=== PATIENT | female | born 1995 | race Caucasian/White ===

== ENCOUNTER 2017-07-14 17:17 | Outpatient (CLI) | payer OTHER ==
[~2017-07-14 17:17] MED LIST: PRENTAB26 PO
[2017-07-14] MEDS ORDERED: LACTATED RINGER'S 1000ML 1,000 ML IV SCH (20:40)
[2017-07-14] MEDS ORDERED: LACTATED RINGER'S 1000ML 1,000 ML IV PRN (20:40)
[2017-07-14 21:13] LABS: HEMATOCRIT 32.6 % (37-47); HEMOGLOBIN 10.7 g/dL (12.0-16.0); MEAN CELL VOLUME 81.9 fL (80-100); MEAN CORPUSCULAR HEMOGLOBIN 26.9 pg (25-34); MEAN CORPUSCULAR HGB CONC 32.8 g/dl (32-36); MEAN PLATELET VOLUME 9.6 fL (7.4-10.4); PLATELET COUNT 187 K/uL (130-400); RED CELL DISTRIBUTION WIDTH CV 13.6 % (11.5-14.5); RED CELL DISTRIBUTION WIDTH SD 41.3 fL (36.4-46.3); WHITE BLOOD COUNT 9.84 K/uL (4.8-10.8)
--- NOTE | 2017-07-15 06:13 | Discharge Instructions ---
Discharge Instructions Date of Service Jul 15, 2017. Admission Reason for Admission: Labor Check Discharge Discharge Diagnosis / Problem: labor check Discharge Goals Goal(s): Continuing OB care Activity Recommendations Activity Limitations: as noted below ACTIVITY RECOMMENDATIONS: See Labor Sheet. SPECIAL CARE INSTRUCTIONS: Call Doctor if: * Regular contractions every 5 minutes or greater than contractions in one hour. * Bleeding * Water breaks or is leaking * Decreased movement * Fever >100.4 degrees F * Pain not relieved by routine measures or pain medication ordered. FOLLOW UP VISIT: Return to Labor and Delivery on for /call for appointment time . Follow-up Visit with: When: . Current Hospital Diet Patient's current hospital diet: Discharge Diet Recommended Diet: Regular Diet Pending Studies Studies pending at discharge: no Medical Emergencies . Who to Call and When: Medical Emergencies: If at any time you feel your situation is an emergency, please call 911 immediately. . Non-Emergent Contact Non-Emergency issues call your: Specialist . . "Provider Documentation" section prepared by Farshad Casillas. . VTE Core Measure Inpt VTE Proph given/why not?: Treatment not indicated
[2017-07-15] MEDS ORDERED: IV FLUIDS COMPLETED PRN (06:30)
--- NOTE | 2017-07-15 07:02 | HISTORY & PHYSICAL EXAMINATION ---
DATE OF ADMISSION: 07/14/2017 HISTORY OF PRESENT ILLNESS: The patient is a 22-year-old G3, P2, due date 07/28/2017 making that 38 weeks and 1 day today. The patient presented to labor and delivery yesterday on 07/14/2017. She had called the office with complaints of contractions. She lives 45 minutes away so reported having contractions about 8-10 minutes. She was therefore made to come to labor and delivery for monitoring. On arrival at labor and delivery, she had no shortness of breath, no chills, no fever. She had contractions of moderate intensity. The contractions were about 2-4 minutes. The patient was examined in labor and delivery and on initial cervical exam. by a nurse was 2 cm She ambulated for several hours. She continued to have these contractions 2-3 minutes. The contraction intensity continued to be moderate. She was reexamined by a different nurse several hours later who found her to be 4 cm dilated. Decision was therefore made to admit patient. The patient continued to describe contractions moderate and wanted to continue walking. She continued to be 4 cm dilated with no cervical change. Her contractions eventually spaced out. The patient was kept overnight and this morning she was examined again. Her contractions interestingly enough have spaced out to almost every 12 minutes and she can barely feel the contractions this morning. Because the patient is 38 weeks, we have decided not to augment labor. Plan is the patient will be discharged home. She is very concerned about possibly delivering at home. I therefore, I scheduled her for induction next week 07/21/2017. The patient and her family agrees with plan and she is therefore be discharged home stable. She will continue to follow up with the office appointment. She has an appointment this afternoon and we will continue with office appointments as planned and will return for labor induction next week July 21, when she will be 39 weeks. COURSE: has been unremarkable. LABS: Blood type B positive, antibody negative, rubella immune, GBS nonreactive. PAST MEDICAL HISTORY: The patient has history of syncope, SEASONAL ALLERGIES. PAST SURGICAL HISTORY: None. RN MILITARY HISTORY: The patient has had 2 spontaneous vaginal deliveries, one in 2012, the other in 2014. Both required induction because of preeclampsia. ALLERGIES: THE PATIENT IS ALLERGIC TO CEPHALEXIN AND PENICILLIN. SOCIAL HISTORY: The patient denies tobacco, drug or alcohol use. PHYSICAL EXAMINATION: GENERAL: Well-developed, well-nourished white female in no acute distress. HEART: S1, S2, regular rhythm and rate. LUNGS: Clear to auscultation bilaterally. ABDOMEN: Gravid. heart rate is category 1. PELVIC: Cervix is about 3 cm, 50% effaced, and very posterior. EXTREMITIES: No cyanosis, clubbing or edema. ASSESSMENT AND PLAN: A 22-year-old G3, P2 at 38 weeks. The patient is admitted to labor and delivery with what initially appeared as labor. She progressed, according to nurse exam, from 2-4 cm several hours later. Her contractions have spaced out, they are now every 12 minutes and the patient notes the contractions, that is mild. Because she is 38 weeks, I decided not to augment her labor at this time. We will discuss continued expected management versus going home. The patient has agreed to go home. She is given instructions about labor. She was examined by me and she is according to my exam at about 3 cm, 50% effaced, and very posterior. The patient is very concerned about possibility of going into labor at home. She lives 45 minutes away. We have therefore agreed to schedule her for induction when she is 39 weeks, which will be on Thursday07/21/2017. At this point, the patient is being discharged home in stable condition. The patient and family have agreed with plan. RUDY
== END 2017-07-15 06:20 | disposition home or self-care (01) ==
LOC: C.LD 17:17 → C.OPB 17:17
PROVIDERS: ATTEND Obstetrics & Gynecology
DX: O62.9 Abnormality of forces of labor, unspecified (principal); Z3A.38 38 weeks gestation of pregnancy

== ENCOUNTER 2017-07-21 07:47 | Inpatient (IN) | payer OTHER ==
[~2017-07-21] VITALS: Ht 154.9 cm; Wt 80.0 kg
[2017-07-21] MEDS ORDERED: LACTATED RINGER'S 1000ML 1,000 ML IV PRN (08:03)
[2017-07-21] MEDS ORDERED: LACTATED RINGER'S 1000ML 1,000 ML IV SCH (08:03)
[2017-07-21] MEDS ORDERED: LACTATED RINGER'S 1000ML 500 ML IV PRN ×2 (08:03→16:01)
[2017-07-21 08:31] VITALS: Ht 154.9 cm; Wt 80.0 kg
[2017-07-21 08:45] LABS: HEMATOCRIT 32.8 % (37-47); HEMOGLOBIN 10.9 g/dL (12.0-16.0); MEAN CELL VOLUME 81.2 fL (80-100); MEAN CORPUSCULAR HGB CONC 33.2 g/dl (32-36); MEAN PLATELET VOLUME 9.7 fL (7.4-10.4); PLATELET COUNT 180 K/uL (130-400); RED CELL DISTRIBUTION WIDTH CV 13.9 % (11.5-14.5); RED CELL DISTRIBUTION WIDTH SD 41.9 fL (36.4-46.3); WHITE BLOOD COUNT 10.12 K/uL (4.8-10.8)
[2017-07-21] MEDS: OXYTOCIN 30 UNITS/500ML NSS IV PRN ×2 (09:11→21:21)
[2017-07-21] MEDS ORDERED: BUPIVACAINE 0.25% 30 ML VIAL ONE (14:45)
[2017-07-21] MEDS ORDERED: FENTANYL CITRATE INJ 50 MCG/1 ML 2 ML VIAL ONE (14:46)
[2017-07-21] MEDS ORDERED: EpHEDrine SULFATE INJ 50 MG/ML AMP ONE (14:46)
[2017-07-21] MEDS ORDERED: FENTANYL 2MCG/ML ROPIV 1.25MG/ML 100ML BAG EPI ONE (14:47)
[2017-07-21] MEDS ORDERED: NALOXONE HCL INJ 1 MG in SODIUM CHLORIDE 0.9% 1000ML 1,000 ML IV PRN ×4 (16:01)
[2017-07-21] MEDS ORDERED: EpHEDrine SULFATE INJ 50 MG/ML AMP IV PRN (16:15)
[2017-07-21] MEDS ORDERED: ONDANSETRON INJ 2 MG/ML 2 ML VIAL IV PRN (16:15)
[2017-07-21] MEDS ORDERED: DiphenhydrAMINE HCL 50 MG/ML VIAL IV PRN (16:15)
[2017-07-21] MEDS ORDERED: NALBUPHINE HCL INJ 10 MG/ML AMP IV PRN (16:15)
[2017-07-21] MEDS ORDERED: FENTANYL 2MCG/ML ROPIV 1.25MG/ML 100ML BAG EPI PRN (16:15)
[2017-07-21] MEDS ORDERED: PROMETHAZINE HCL INJ 25 MG in SODIUM CHLORIDE 0.9% 50ML 50 ML IV PRN (16:15)
[2017-07-21] MEDS ORDERED: NALOXONE HCL INJ 0.4 MG/1 ML VIAL/CARP IV PRN (16:15)
--- NOTE | 2017-07-21 20:31 | HISTORY & PHYSICAL EXAMINATION ---
DATE OF ADMISSION: 07/21/2017 HISTORY OF PRESENT ILLNESS: The patient is a 22-year-old G3, P2, due date 07/28/2017 making her 39 weeks today. The patient is here for induction of labor. The patient lives about an hour and half from here and her last delivery was precipitous. Decision was therefore made to have the patient come in for induction of labor. On arrival to labor and delivery, she had no shortness of breath, no chills, no fever. Pelvic exam shows she was 3 cm, 50% effaced, and -2. LABS: Have been unremarkable. Blood type is B positive, antibody negative, rubella immune, GBS negative. PAST MEDICAL HISTORY: The patient had history of syncope and allergic rhinitis. PAST SURGICAL HISTORY: None. ALLERGIES: THE PATIENT IS ALLERGIC TO CEPHALEXIN AND PENICILLIN. SOCIAL HISTORY: The patient denies tobacco, drug or alcohol use. FAMILY HISTORY: Noncontributory. 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 's weight 8 pounds 13 ounces and 9 pounds 6 ounces respectively. REVIEW OF SYSTEMS: Negative except as dictated in the HPI. PHYSICAL EXAMINATION: GENERAL: Well-developed, well-nourished white female in no acute distress. HEART: S1, S2, regular rhythm and rate. LUNGS: Clear to auscultation bilaterally. ABDOMEN: Gravid. Bedside ultrasound shows cephalic presentation. PELVIC: On admission was 3 cm, 50% effaced, -2. EXTREMITIES: No cyanosis, clubbing or edema. ASSESSMENT AND PLAN: A 22-year-old G3, P2 at 39+ weeks, here for induction of labor. She lives over an hour [place] a half away and her last delivery was rather precipitous. The patient has been admitted for induction of labor.
[2017-07-21] MEDS ORDERED: METHYLERGONOVINE MALEATE 0.2 MG/ML AMP ONE (20:39)
[2017-07-21] MEDS ORDERED: SUPERCREAM 0.870 % 15GM JAR EXT PRN (21:15)
[2017-07-21] MEDS ORDERED: BENZOCAINE 20% AER SPR 82.5 GM CAN EXT PRN (21:15)
[2017-07-21] MEDS ORDERED: HYDROCORTISONE ACETATE 25 MG SUPP PR PRN (21:15)
[2017-07-21] MEDS ORDERED: ACETAMINOPHEN 325 MG TAB PO PRN (21:15)
[2017-07-21] MEDS ORDERED: OXYCODONE/ACETAMINOPHEN 5-325 TAB PO PRN (21:15)
[2017-07-21] MEDS ORDERED: MISOPROSTOL 200 MCG TAB PR SCH (21:15)
[2017-07-21] MEDS ORDERED: LANOLIN OINT EXT PRN (21:15)
[2017-07-21] MEDS ORDERED: OXYTOCIN 30 UNITS/500ML NSS IV PRN (21:15)
[2017-07-21] MEDS ORDERED: ACETAMINOPHEN/CODEINE 300/30MG TAB PO PRN ×2 (21:15)
--- NOTE | 2017-07-21 21:24 | DELIVERY SUMMARY ---
DATE OF OPERATION: 07/21/2017 DELIVERY NOTE: The patient delivered a live male in left occiput anterior presentation. There was loose nuchal cord, which was easily reduced. The infant was delivered and placed on mother's abdomen. Cord was clamped after 1 minute. Cord blood was obtained. Placenta was spontaneously delivered. Inspection of the perineum showed no laceration or tears. The perineum was completely intact. Estimated blood loss is 250 mL. All retractors were removed from the vagina. Rectal exam post repair showed good sphincter tone. The 's weight is pending. The patient's Apgars 8 and 9. Baby and mother are doing well in the recovery. I attest to the content of the Intraoperative Record and any orders documented therein. Any exception s are noted below.
--- NOTE | 2017-07-21 21:35 | Anesthesia Procedure Note ---
Anesthesia Epidural Removal Nt Date & Time Jul 21, 2017 at 21:35 Vital Signs Pain Intensity: 5.0 Notes Mental Status: alert / awake / arousable, participated in evaluation Nausea / Vomiting: adequately controlled Pain: adequately controlled Airway Patency, RR, SpO2: stable & adequate BP & HR: stable & adequate Hydration State: stable & adequate Neuraxial Anesthesia: was administered Anesthetic Complications: no major complications apparent, pt satisfied with anesthetic care Epidural: removed without complications, with tip intact
[2017-07-21 23:15] VITALS: BP 115/75; PULSE 93; TEMP 36.9; O2SAT 97
[2017-07-22] MEDS: IBUPROFEN 600 MG TAB PO PRN ×4 (03:44→20:16)
[2017-07-22 04:02] VITALS: BP 113/67; PULSE 79; TEMP 36.6; O2SAT 98
[2017-07-22 06:30] LABS: HEMATOCRIT 29.2 % (37-47); HEMOGLOBIN 9.8 g/dL (12.0-16.0)
[2017-07-22 08:00] VITALS: BP 113/74; PULSE 80; TEMP 36.6
[2017-07-22] MEDS: DOCUSATE SODIUM 100 MG CAP PO SCH ×2 (08:53→20:00)
[2017-07-22] MEDS: FERROUS SULFATE 325 MG TAB PO SCH (09:40)
[2017-07-22 11:36] VITALS: BP 126/79; PULSE 84; TEMP 36.8
--- NOTE | 2017-07-22 11:50 | OB/GYN Progress Note ---
MARKET RESEARCH EXECUTIVE Progress Note Date of Service Jul 22, 2017. Subjective conversation w/ patient, physical exam Ambulation: ambulating normally Voiding: no voiding problems Passing Gas: Yes Diet Tolerance: Regular Diet Lochia: Small Feeding Type: Bottle Feeding Objective Vital Signs Date Time Temp Pulse Resp B/P (MAP) Pulse Ox O2 Delivery O2 Flow Rate FiO2 07/22/17 11:36 36.8 84 16 126/79 (95) 07/22/17 08:39 Room Air 07/22/17 08:00 36.6 80 18 113/74 (87) Room Air 07/22/17 04:02 36.6 79 16 113/67 (82) 98 Room Air 07/21/17 23:15 97 Room Air 07/21/17 23:15 36.9 93 18 115/75 (88) 97 Room Air Physical Exam General Appearance: WELL-APPEARING, NO APPARENT DISTRESS Abdomen: non tender, soft Fundus: Firm Extremities: non-tender, normal inspection, no pedal edema, no calf tenderness Laboratory Results Last 24 Hours Test 07/22/17 06:05 Hemoglobin 9.8 g/dL Hematocrit 29.2 % Assessment and Plan Post- Day Number: 1 Continue Routine Care: tentative discharge in AM
[2017-07-22 15:23] VITALS: BP 120/74; PULSE 83; TEMP 36.8; O2SAT 96
[2017-07-22 20:00] VITALS: BP 114/73; PULSE 73; TEMP 36.5; O2SAT 97
[2017-07-22] MEDS ORDERED: BISACODYL 5 MG TABEC PO SCH (20:00)
[2017-07-23 00:30] VITALS: BP_SYST 100; BP_SYST 123; BP_DIAS 65; BP_DIAS 75; PULSE 60; PULSE 76; TEMP 36.6; TEMP 36.9
[2017-07-23 07:00] LABS: HEMATOCRIT 30.3 % (37-47); MEAN CELL VOLUME 81.2 fL (80-100); MEAN CORPUSCULAR HEMOGLOBIN 26.8 pg (25-34); PLATELET COUNT 155 K/uL (130-400); WHITE BLOOD COUNT 9.06 K/uL (4.8-10.8)
[2017-07-23] MEDS ORDERED: BISACODYL 10 MG SUPP PR PRN (07:00)
[2017-07-23 07:30] VITALS: BP 125/85; PULSE 71; TEMP 36.6; O2SAT 98
[2017-07-23] MEDS: FERROUS SULFATE 325 MG TAB PO SCH (08:06)
[2017-07-23] MEDS: DOCUSATE SODIUM 100 MG CAP PO SCH (08:06)
[2017-07-23] MEDS: IBUPROFEN 600 MG TAB PO PRN (08:06)
--- NOTE | 2017-07-23 08:46 | OB/GYN Progress Note ---
[employer]ER [employer] Progress Note Date of Service Jul 23, 2017. Subjective conversation w/ patient, physical exam Ambulation: ambulating normally Voiding: no voiding problems Passing Gas: Yes Diet Tolerance: Regular Diet Lochia: Moderate Feeding Type: Breast Feeding Review of Systems Constitutional: No fever, No chills, No sweats, No weight loss, No weakness, No fatigue, No problem reported Respiratory: No cough, No sputum, No wheezing, No shortness of breath, No dyspnea on exertion, No dyspnea at rest, No hemoptysis, No problem reported Cardiac: No chest pain, No orthopnea, No PND, No edema, No claudication, No palpitations, No problem reported Breast: No see HPI, No breast lump, No change in shape, No nipple discharge, No breast pain, No problem reported Abdomen: No pain, No nausea, No vomiting, No diarrhea, No constipation, No GI bleeding, No problem reported Female : No see HPI, No dysuria, No urinary frequency, No hematuria, No incontinence, No abnormal vaginal bleeding, No vaginal discharge, No problem reported Objective Vital Signs Date Time Temp Pulse Resp B/P (MAP) Pulse Ox O2 Delivery O2 Flow Rate FiO2 07/23/17 07:55 Room Air 07/23/17 07:30 36.6 71 16 125/85 (98) 98 Room Air 07/23/17 00:30 36.6 60 18 123/75 (91) Room Air 07/23/17 00:30 Room Air 07/22/17 20:00 36.5 73 16 114/73 (87) 97 Room Air 07/22/17 15:23 36.8 83 16 120/74 (89) 96 Room Air 07/22/17 15:23 96 Room Air 07/22/17 11:36 36.8 84 16 126/79 (95) Physical Exam General Appearance: WELL-APPEARING, WD/WN, NO APPARENT DISTRESS Respiratory/Chest: chest non-tender, lungs clear, normal breath sounds Cardiovascular: regular rate, rhythm, no edema, no gallop Abdomen: normal bowel sounds, non tender, soft Fundus: Firm Incision Description: Clean, Dry & Intact Extremities: normal range of motion, non-tender, no pedal edema Laboratory Results Last 24 Hours Test 07/23/17 06:21 White Blood Count 9.06 K/uL Red Blood Count 3.73 M/uL Hemoglobin 10.0 g/dL Hematocrit 30.3 % Mean Corpuscular Volume 81.2 fL Mean Corpuscular Hemoglobin 26.8 pg Mean Corpuscular Hemoglobin Concent 33.0 g/dl Platelet Count 155 K/uL Assessment and Plan Post- Day Number: 1 Continue Routine Care: PPD #2 pt doing well no complaints disch home with instructions
[2017-07-23] MEDS ORDERED: FRRS300 PO (10:22)
[2017-07-23] MEDS ORDERED: MTR600X PO (10:22)
--- NOTE | 2017-07-23 10:23 | Discharge Instructions ---
Discharge Instructions Date of Service Jul 23, 2017. Admission Reason for Admission: Induction Discharge Discharge Diagnosis / Problem: Discharge Goals Goal(s): Routine recovery after delivery Activity Recommendations Activity Limitations: as noted below ACTIVITY RECOMMENDATIONS: * Gradual return to full activity over the next 2-3 weeks. * No lifting - nothing heavier than baby over the next 2-3 weeks. * Do not engage in vigorous exercise, sexual activity or sports until cleared by your physician. * Do not drive or operate any motorized equipment until cleared by your physician. * You may shower/bathe daily. BREAST CARE: If you are not breast feeding: * Wear a supportive bra 24 hours a day for one to two weeks. * Avoid stimulating your breasts and nipples as much as possible during the first few weeks after delivery. * When taking a shower, have the warm water hit your back, not breasts. * When your breasts feel full, apply ice packs. Usually three to four times a day helps ease the discomfort. * Take a mild pain medication (Tylenol/Motrin) when you are uncomfortable. If breast feeding: * Use breast milk to lubricate nipples. Lansinoh cream may be used for sore nipples. You do not need to remove cream prior to breast feeding. If using a different brand of cream, check the label for directions regarding removal of cream prior to nursing. * Wear a supportive bra. * If having problems with breasts or breast feeding, call a mergers and acquisitions consultant or your health care provider. EPISIOTOMY CARE: After delivery, if you have an episiotomy (stitches), the following steps will ease discomfort and aid healing. * For the first 24 hours after delivery, place ice packs next to your episiotomy to help reduce swelling. * After the first 24 hour-period, sitz baths, either portable or in the tub, are suggested. A shower with a shower arm sprayed over the episiotomy may be comforting. * Maureen care should be done after each voiding and bowel movement. Squirt warm water from a plastic bottle over the perineum (region of the body between the anus and urinary opening) and pat dry. * Use Dermoplast to ease discomfort. Shake container. [place] directly over the episiotomy. * Place a Tucks on a clean sanitary pad next to your episiotomy. OVER THE COUNTER MEDICATION: * For discomfort or pain, you may use Acetaminophen (Tylenol), Ibuprofen (Advil ), or Naproxen (Aleve) following the package directions. * For constipation you may use Colace following the package directions. SPECIAL CARE INSTRUCTIONS: When you are discharged from the hospital, it is important for you to follow the instructions listed below: * During the first week at home, you should be able to care for yourself and your baby. In addition, the usual light household activities are encouraged. * Limit your activities to the way you feel. Do not try to clean the house or move furniture. Be sensible. * If you actively engage in sports and have done so up until the time of your delivery, you may resume these activities as soon as you feel able. This may take up to one month or even longer. Use good judgment. * Continue to take your vitamins for at least six weeks after the of your baby. * Your diet need not be limited unless you were on a special diet before your delivery. Breast-feeding mothers need around 2500 calories per day and at least 64-80 ounces of fluid per day (8 to 10 glasses). * You should eat foods from the four major food groups. Crash diets or fad diets are to be avoided. Eating lean meats, fresh fruits and vegetables, low-fat dairy products, high fiber foods and a regular exercise program, will help you get back to your pre- weight without putting your health at risk. * Constipation is sometimes a problem after delivery. Take a mild laxative as needed. If breast feeding, Milk of Magnesia is acceptable to use. You may use a suppository or Fleets enema if no episiotomy. * A daily shower or tub bath is suggested. Be sure to thoroughly and gently dry the perineum. * A bloody vaginal discharge will usually continue until around four weeks post . A small amount of bleeding may continue for as long as six weeks. Vaginal discharge changes from the bright red bleeding after delivery to pink then brownish and finally yellowish-pink before becoming white and disappearing. * Bleeding may increase with activity. Your first period may come in 4-8 weeks. If you are breast feeding, your period may be delayed even longer. * Idana (sex) can begin whenever both you and your partner feel comfortable and do not have any form of genital infection. It is recommended that you wait until after your return appointment and discuss with your physician. If you have questions, please talk to your health care practitioner. A condom should be used to prevent infection and . * Foreplay, gentle intercourse and lubrication is very important the first several times to prevent pain. A water-based lubricant such as K-Y jelly or Astroglide may be used. * Tampons may be used six weeks after delivery. * Douching should be avoided for 6 weeks after delivery. * If you have RH negative blood and your baby is RH positive, you will receive RHOGAM by injection prior to discharge. The nurse will give you a card to keep with you that has the date and place that you received RHOGAM after delivery. * During your care, you had a Rubella screen done to check for the presence of rubella antibodies in your blood. If your test was negative, you will receive a Rubella vaccine prior to discharge. This vaccine may cause a fever, soreness at the injection site and flu-like symptoms. If these symptoms persist, notify your health care practitioner. is not advised for three months after a Rubella vaccine. There is a higher chance of having a baby with defects if conceived within three months of getting the vaccine. * If you were discharged 24 hours from delivery or before 48 hours: Visiting nurses will come to your home 48 hours after discharge to assess you and your baby. The visiting nurse will meet with you while you are in the hospital to arrange a time and get directions to your home. * Verbalizes understanding of car seat law as reviewed with patient nursing. * Car Seat hand-out given and reviewed with patient by nursing. * Shaken baby information reviewed with patient by nursing. Call you doctor if: * Heavy bleeding (saturating several pads an hour) or passing clots the size of your fist. * A fever >101 degrees F (38.3 degrees C) on two occasions four hours apart and/or chills. * Unusual pain in the pelvic or vaginal areas. * "Baby Blues" lasting longer than two weeks. If you have any questions or concerns, call your health care practitioner at . FOLLOW-UP VISIT: * Please call the office at to schedule a 6 week examination. It is important you keep this appointment. * It is important for you to make arrangements for either yearly or twice yearly check-ups thereafter. . Current Hospital Diet Patient's current hospital diet: Regular OB Diet Discharge Diet Recommended Diet: Regular Diet Pending Studies Studies pending at discharge: no Medical Emergencies . Who to Call and When: Medical Emergencies: If at any time you feel your situation is an emergency, please call 911 immediately. . Non-Emergent Contact Non-Emergency issues call your: Specialist . . "Provider Documentation" section prepared by Farshad Casillas. .
[2017-07-23 12:35] VITALS: BP 131/85; PULSE 83; TEMP 36.4; O2SAT 99
== END 2017-07-23 13:35 | disposition home or self-care (01) | DRG 775 ==
LOC: C.LD 07:47 → C.OBG 23:19
PROVIDERS: ADMIT Obstetrics & Gynecology; ATTEND Obstetrics & Gynecology
PROC: 10E0XZZ Delivery of Products of Conception, External Approach (ICD-10-PCS; principal; 2017-07-21)
DX: O69.81X0 Labor and delivery complicated by cord around neck, without compression, not applicable or unspecified (principal); Z3A.39 39 weeks gestation of pregnancy; Z37.0 Single live birth; Z88.0 Allergy status to penicillin; Z88.1 Allergy status to other antibiotic agents